=== PATIENT | male | born 1995 | race Caucasian/White ===

== ENCOUNTER 2017-05-15 07:58 | Inpatient (IN) | payer BC, OTHER ==
[~2017-05-15] VITALS: Ht 188 cm; Wt 119.7 kg
[2017-05-15] MEDS ORDERED: HYDROXYZINE PAMOATE 25 MG CAPSULE PO PRN (23:45)
[2017-05-15] MEDS ORDERED: THIAMINE HCL 200 MG/2 ML VIAL IM ONE (23:45)
[2017-05-15] MEDS ORDERED: diphenhydrAMINE 50 MG CAPSULE PO PRN (23:45)
[2017-05-15] MEDS ORDERED: LOPERAMIDE HCL 2 MG CAPSULE PO PRN ×2 (23:45)
[2017-05-15] MEDS ORDERED: DIAZEPAM 10 MG TABLET PO PRN ×2 (23:45)
[2017-05-15] MEDS ORDERED: DICYCLOMINE HCL 20 MG TABLET PO PRN (23:45)
[2017-05-15] MEDS ORDERED: LORAZEPAM 2 MG/1 ML VIAL IM PRN (23:45)
[2017-05-15] MEDS ORDERED: IBUPROFEN 400 MG TABLET PO PRN (23:45)
[2017-05-15] MEDS ORDERED: DIAZEPAM 5 MG TABLET PO PRN (23:45)
[2017-05-16] MEDS ORDERED: BUPRENORPHINE HCL 2 MG TAB.SUBL SL PRN
[2017-05-16 00:09] LABS: ALANINE AMINOTRANSFERASE 62 U/L (16-63); ALKALINE PHOSPHATASE 69 U/L (50-136); AMYLASE 43 U/L (25-115); ASPARTATE AMINOTRANSFERASE 38 U/L (15-37); BILIRUBIN,TOTAL 0.4 mg/dL (0.2-1.0); CARBON DIOXIDE 28 mmol/L (21-32); CHLORIDE 101 mmol/L (98-107); CREATININE 1.2 mg/dL (0.6-1.3); GLUCOSE 105 mg/dL (74-106); LIPASE 83 U/L (73-393); MAGNESIUM 1.8 mg/dL (1.8-2.4); POTASSIUM 3.6 mmol/L (3.5-5.1); TOTAL PROTEIN, SERUM 7.9 g/dL (6.4-8.2); UREA NITROGEN, BLOOD 11 mg/dL (7-18)
[2017-05-16 00:11] LABS: ETHANOL < 3 MG/DL (0-0)
[2017-05-16 00:18] LABS: THYROID STIMULATING HORMONE 3.571 mIU/mL (0.358-3.740)
[2017-05-16 00:19] LABS: BASOPHILS # (AUTO) 0.1 K/uL (0.0-8.0); BASOPHILS % (AUTO) 0.5 % (0.0-2.0); EOSINOPHILS # (AUTO) 0.2 K/uL (0.0-0.7); HEMATOCRIT 48.2 % (40-50); HEMOGLOBIN 16.4 G/DL (14.0-18.0); LYMPHOCYTES # (AUTO) 3.4 K/UL (0.8-4.8); LYMPHOCYTES % (AUTO) 28.9 % (20.5-51.5); MEAN CORPUSCULAR HEMOGLOBIN 30.6 UUG (27.0-31.0); MEAN CORPUSCULAR HGB CONC 34 g/dL (32.0-37.0); MEAN CORPUSCULAR VOLUME 90.3 FL (82.0-92.0); MONOCYTES # (AUTO) 0.7 K/UL (0.1-1.30); MONOCYTES % (AUTO) 6.3 % (0.0-11.0); NEUTROPHILS # (AUTO) 7.5 K/UL (1.8-8.9); NEUTROPHILS % (AUTO) 62.3 % (38.5-71.5); PLATELET COUNT (AUTO) 240 K/UL (150-450); RED BLOOD CELL COUNT(AUTO) 5.34 MIL/UL (4.7-6.1); WHITE BLOOD COUNT (AUTO) 11.9 K/UL (4.0-11.2)
[2017-05-16] MEDS ORDERED: DIAZEPAM 10 MG TABLET PO ONE (00:30)
[2017-05-16 00:34] LABS: *AMPHETAMINE, URINE NEGATIVE (NEGATIVE); *BARBITURATE, URINE NEGATIVE (NEGATIVE); *CANNABINOID, URINE POSITIVE (NEGATIVE); *COCCAINE, URINE NEGATIVE (NEGATIVE); *OPIATE, URINE NEGATIVE (NEGATIVE); *PHENCYCLIDINE SCREEN,URINE NEGATIVE (NEGATIVE)
[2017-05-16] MEDS ORDERED: THIAMINE HCL 200 MG/2 ML VIAL ONE (00:58)
[2017-05-16] MEDS ORDERED: DIAZEPAM 10 MG TABLET ONE (00:59)
[2017-05-16 04:00] VITALS: BP 149/95
[2017-05-16] MEDS ORDERED: DIVA500T7 PO (04:29)
[2017-05-16] MEDS ORDERED: CHLO25CA22 PO (04:30)
[2017-05-16] MEDS ORDERED: ALPR2TAB7 PO (04:31)
[2017-05-16] MEDS ORDERED: BREX2TAB PO (04:31)
[2017-05-16] MEDS ORDERED: QUET100T PO (04:32)
[2017-05-16] MEDS ORDERED: BUPR300T54 PO (04:32)
[2017-05-16] MEDS ORDERED: VILA20TA PO (04:33)
[2017-05-16] MEDS ORDERED: CARB15DR2 OP (04:33)
[2017-05-16] MEDS ORDERED: NICO1PAT20 TD (04:34)
[2017-05-16] MEDS ORDERED: AMOX500T2 PO (04:35)
[2017-05-16] MEDS ORDERED: LISI-607 PO (04:35)
[2017-05-16] MEDS ORDERED: NICO-724 BC (04:36)
[2017-05-16 08:00] VITALS: BP 133/84
[2017-05-16] MEDS ORDERED: TUBERCULIN,PURIF.PROT.DERIV. 5 TU/0.1 ML TEST ID ONE (09:00)
[2017-05-16] MEDS: FOLIC ACID 1 MG TABLET PO SCH (09:47)
[2017-05-16] MEDS: MULTIVITAMINS,THERAPEUTIC TABLET PO SCH (09:47)
[2017-05-16] MEDS: THIAMINE HCL 100 MG TABLET PO SCH (09:47)
[2017-05-16] MEDS: METHOCARBAMOL 750 MG TABLET PO PRN (09:47)
[2017-05-16] MEDS: CLONIDINE HCL 0.1 MG TABLET PO PRN (09:47)
[2017-05-16] MEDS: IBUPROFEN 600 MG TABLET PO PRN (09:47)
[2017-05-16] MEDS: DIAZEPAM 10 MG TABLET PO SCH ×4 (10:55→20:27)
[2017-05-16 12:00] VITALS: BP 132/81
[2017-05-16 16:00] VITALS: BP 143/90
[2017-05-16] MEDS ORDERED: BENZOCAINE/MENTH/CETYLPYRD LOZENGE MM PRN (16:30)
[2017-05-16] MEDS ORDERED: DIAZEPAM 10 MG TABLET PO PRN ×2 (20:00)
[2017-05-16 20:17] VITALS: BP 133/88
[2017-05-16] MEDS: QUETIAPINE FUMARATE 100 MG TABLET PO SCH (20:27)
[2017-05-16] MEDS: ACETAMINOPHEN 325 MG TABLET PO PRN (20:27)
[2017-05-16] MEDS: GABAPENTIN 300 MG CAPSULE PO SCH (20:28)
[2017-05-16] MEDS: REXULTI 2 MG PO SCH (20:35)
[2017-05-17] MEDS: METHOCARBAMOL 750 MG TABLET PO PRN ×2 (00:09→08:43)
[2017-05-17 00:10] VITALS: BP 108/67
[2017-05-17] MEDS: DIAZEPAM 5 MG TABLET PO PRN ×2 (02:28→06:35)
[2017-05-17] MEDS: IBUPROFEN 600 MG TABLET PO PRN ×2 (02:28→08:43)
[2017-05-17 04:14] VITALS: BP 97/56
[2017-05-17 07:08] LABS: HEPATITIS B SURFACE AG Negative (Negative)
[2017-05-17 07:41] LABS: BASOPHILS % (AUTO) 0.5 % (0.0-2.0); EOSINOPHILS # (AUTO) 0.3 K/uL (0.0-0.7); EOSINOPHILS % (AUTO) 3.8 % (0.0-7.0); HEMATOCRIT 46.1 % (40-50); HEMOGLOBIN 15.6 G/DL (14.0-18.0); LYMPHOCYTES # (AUTO) 2.6 K/UL (0.8-4.8); LYMPHOCYTES % (AUTO) 32.4 % (20.5-51.5); MEAN CORPUSCULAR HEMOGLOBIN 30.4 UUG (27.0-31.0); MEAN CORPUSCULAR HGB CONC 34 g/dL (32.0-37.0); MONOCYTES # (AUTO) 0.6 K/UL (0.1-1.30); MONOCYTES % (AUTO) 7.3 % (0.0-11.0); NEUTROPHILS # (AUTO) 4.6 K/UL (1.8-8.9); PLATELET COUNT (AUTO) 229 K/UL (150-450); RED BLOOD CELL COUNT(AUTO) 5.12 MIL/UL (4.7-6.1); WHITE BLOOD COUNT (AUTO) 8.1 K/UL (4.0-11.2)
[2017-05-17 08:00] VITALS: BP 110/66
[2017-05-17] MEDS: GABAPENTIN 300 MG CAPSULE PO SCH ×3 (08:42→20:45)
[2017-05-17] MEDS: DIAZEPAM 10 MG TABLET PO SCH ×3 (08:42→20:45)
[2017-05-17] MEDS: buPROPion XL 150 MG TAB.SR.24H PO SCH (08:42)
[2017-05-17] MEDS: FOLIC ACID 1 MG TABLET PO SCH (08:43)
[2017-05-17] MEDS: MULTIVITAMINS,THERAPEUTIC TABLET PO SCH (08:43)
[2017-05-17] MEDS: CLONIDINE HCL 0.1 MG TABLET PO PRN (08:43)
[2017-05-17] MEDS: THIAMINE HCL 100 MG TABLET PO SCH (08:43)
[2017-05-17] MEDS ORDERED: HOME MED MISCELLANEOUS PO SCH (09:00)
[2017-05-17] MEDS ORDERED: DIAZEPAM 10 MG TABLET PO PRN ×2 (11:15)
[2017-05-17] MEDS ORDERED: DIAZEPAM 5 MG TABLET PO PRN (11:15)
[2017-05-17] MEDS ORDERED: BACLOFEN 20 MG TABLET PO PRN (11:30)
[2017-05-17] MEDS ORDERED: DIAZEPAM 10 MG TABLET PO ONE ×2 (11:54)
[2017-05-17 12:00] VITALS: BP 124/85
[2017-05-17] MEDS: BUPRENORPHINE HCL 2 MG TAB.SUBL SL SCH ×3 (12:03→20:46)
[2017-05-17] MEDS: MAG HYDROX/AL HYDROX/SIMETH 30 ML LIQUID UDC PO PRN (15:59)
[2017-05-17 16:00] VITALS: BP 128/90
[2017-05-17 20:12] VITALS: BP 133/90
[2017-05-17] MEDS: REXULTI 2 MG PO SCH (20:44)
[2017-05-17] MEDS: QUETIAPINE FUMARATE 100 MG TABLET PO SCH (20:45)
[2017-05-17] MEDS: ONDANSETRON ODT 4 MG TAB.RAPDIS SL PRN (22:27)
[2017-05-18 00:06] VITALS: BP 127/85
[2017-05-18] MEDS: ACETAMINOPHEN 325 MG TABLET PO PRN ×2 (03:56→21:20)
[2017-05-18] MEDS: IBUPROFEN 600 MG TABLET PO PRN ×2 (03:56→13:39)
[2017-05-18 04:09] VITALS: BP 127/82
[2017-05-18 08:12] VITALS: BP 138/62
[2017-05-18] MEDS: THIAMINE HCL 100 MG TABLET PO SCH (08:15)
[2017-05-18] MEDS: DIAZEPAM 5 MG TABLET PO SCH ×3 (08:15→21:21)
[2017-05-18] MEDS: MULTIVITAMINS,THERAPEUTIC TABLET PO SCH (08:15)
[2017-05-18] MEDS: FOLIC ACID 1 MG TABLET PO SCH (08:15)
[2017-05-18] MEDS: METHOCARBAMOL 750 MG TABLET PO PRN (08:16)
[2017-05-18] MEDS: buPROPion XL 150 MG TAB.SR.24H PO SCH (08:16)
[2017-05-18] MEDS: GABAPENTIN 300 MG CAPSULE PO SCH ×3 (08:16→21:21)
[2017-05-18] MEDS ORDERED: BUPRENORPHINE HCL 2 MG TAB.SUBL SL SCH (09:00)
[2017-05-18] MEDS ORDERED: DIAZEPAM 5 MG TABLET PO SCH (09:00)
[2017-05-18] MEDS ORDERED: NICOTINE POLACRILEX 2 MG LOZENGE BC PRN (12:15)
[2017-05-18] MEDS ORDERED: NICOTINE 2 MG PO PRN (12:30)
[2017-05-18 13:39] VITALS: BP 124/83
[2017-05-18] MEDS: ONDANSETRON ODT 4 MG TAB.RAPDIS SL PRN (14:07)
[2017-05-18] MEDS: ONDANSETRON 4 MG/2 ML VIAL IM PRN (14:16)
[2017-05-18] MEDS: BUPRENORPHINE HCL 2 MG TAB.SUBL SL SCH ×2 (15:12→21:30)
[2017-05-18 17:35] VITALS: BP 125/76
[2017-05-18 20:00] VITALS: BP 123/76
[2017-05-18] MEDS: AMOXICILLIN-CLAVUL 875-125MG TABLET PO SCH (21:19)
[2017-05-18] MEDS: QUETIAPINE FUMARATE 100 MG TABLET PO SCH (21:20)
[2017-05-19] VITALS: BP 121/57
[2017-05-19] MEDS: METHOCARBAMOL 750 MG TABLET PO PRN (01:35)
[2017-05-19] MEDS: IBUPROFEN 600 MG TABLET PO PRN (01:36)
[2017-05-19 04:00] VITALS: BP 101/65
[2017-05-19 07:23] LABS: CREATININE 1.1 mg/dL (0.6-1.3); PHOSPHOROUS 3.5 mg/dL (2.5-4.9); POTASSIUM 3.7 mmol/L (3.5-5.1)
[2017-05-19 07:27] LABS: BASOPHILS % (AUTO) 0.5 % (0.0-2.0); EOSINOPHILS # (AUTO) 0.1 K/uL (0.0-0.7); EOSINOPHILS % (AUTO) 1.4 % (0.0-7.0); HEMATOCRIT 42.5 % (40-50); HEMOGLOBIN 14.3 G/DL (14.0-18.0); LYMPHOCYTES # (AUTO) 2.4 K/UL (0.8-4.8); LYMPHOCYTES % (AUTO) 25.5 % (20.5-51.5); MEAN CORPUSCULAR HEMOGLOBIN 30.2 UUG (27.0-31.0); MEAN CORPUSCULAR HGB CONC 34 g/dL (32.0-37.0); MONOCYTES # (AUTO) 0.8 K/UL (0.1-1.30); MONOCYTES % (AUTO) 8.8 % (0.0-11.0); NEUTROPHILS % (AUTO) 63.8 % (38.5-71.5); PLATELET COUNT (AUTO) 213 K/UL (150-450); RED BLOOD CELL COUNT(AUTO) 4.72 MIL/UL (4.7-6.1); WHITE BLOOD COUNT (AUTO) 9.3 K/UL (4.0-11.2)
[2017-05-19 08:11] VITALS: BP 110/71
[2017-05-19] MEDS ORDERED: DIAZEPAM 5 MG TABLET PO SCH (09:00)
[2017-05-19] MEDS ORDERED: BUPRENORPHINE HCL 2 MG TAB.SUBL SL SCH (09:00)
[2017-05-19] MEDS: FOLIC ACID 0.4 MG TABLET PO SCH (09:31)
[2017-05-19] MEDS: AMOXICILLIN-CLAVUL 875-125MG TABLET PO SCH ×2 (09:31→21:45)
[2017-05-19] MEDS: GABAPENTIN 300 MG CAPSULE PO SCH (09:32)
[2017-05-19] MEDS: BUPRENORPHINE HCL 2 MG TAB.SUBL SL SCH ×4 (09:32→21:46)
[2017-05-19] MEDS: THIAMINE HCL 100 MG TABLET PO SCH (09:32)
[2017-05-19] MEDS: buPROPion XL 150 MG TAB.SR.24H PO SCH (09:32)
[2017-05-19] MEDS: MULTIVITAMINS,THERAPEUTIC TABLET PO SCH (09:32)
[2017-05-19] MEDS: DIAZEPAM 5 MG TABLET PO SCH ×4 (09:33→21:45)
[2017-05-19] MEDS: PATIENT MAY USE OWN MED- MD OK PO SCH (09:34)
[2017-05-19] MEDS: ACETAMINOPHEN 325 MG TABLET PO PRN (11:01)
[2017-05-19] MEDS ORDERED: SUMATRIPTAN SUCCINATE 50 MG TABLET PO ONE (11:45)
[2017-05-19] MEDS ORDERED: KETOROLAC TROMETHAMINE 30 MG INJ IM PRN (11:45)
[2017-05-19] MEDS ORDERED: MAGNESIUM CITRATE 296 ML BOTTLE PO ONE (11:45)
[2017-05-19] MEDS: DOCUSATE SODIUM 250 MG CAPSULE PO SCH (12:32)
[2017-05-19 12:40] VITALS: BP 114/75
[2017-05-19] MEDS: ONDANSETRON 4 MG/2 ML VIAL IM PRN ×2 (14:02→21:04)
[2017-05-19] MEDS: BACLOFEN 10 MG TABLET PO SCH ×2 (15:34→21:46)
[2017-05-19] MEDS: ASPIRIN/ACETAMINOPHEN/CAFFEINE TABLET PO PRN ×2 (15:34→21:58)
[2017-05-19] MEDS: GABAPENTIN 400 MG CAPSULE PO SCH ×2 (15:34→21:44)
[2017-05-19 16:59] VITALS: BP 136/81
[2017-05-19 20:00] VITALS: BP 143/97
[2017-05-19] MEDS: QUETIAPINE FUMARATE 100 MG TABLET PO SCH (21:45)
[2017-05-19] MEDS: LACTOBACILLUS RHAMNOSUS GG 1 EACH CAPSULE PO SCH (21:46)
[2017-05-19] MEDS: MAGNESIUM HYDROXIDE 30 ML LIQUID UDC PO PRN (21:59)
[2017-05-20 08:00] VITALS: BP 90/50
[2017-05-20] MEDS ORDERED: DIAZEPAM 5 MG TABLET PO SCH (09:00)
[2017-05-20] MEDS ORDERED: BUPRENORPHINE HCL 2 MG TAB.SUBL SL SCH ×3 (09:00→21:00)
[2017-05-20 09:05] VITALS: BP 132/86
[2017-05-20] MEDS: MAG HYDROX/AL HYDROX/SIMETH 30 ML LIQUID UDC PO PRN ×2 (09:09→18:47)
[2017-05-20] MEDS: ONDANSETRON ODT 4 MG TAB.RAPDIS SL PRN (09:09)
[2017-05-20] MEDS: GABAPENTIN 400 MG CAPSULE PO SCH ×3 (09:51→20:57)
[2017-05-20] MEDS: DOCUSATE SODIUM 250 MG CAPSULE PO SCH (09:51)
[2017-05-20] MEDS: BACLOFEN 10 MG TABLET PO SCH ×3 (09:51→20:58)
[2017-05-20] MEDS: LACTOBACILLUS RHAMNOSUS GG 1 EACH CAPSULE PO SCH ×2 (09:52→20:57)
[2017-05-20] MEDS: DIAZEPAM 5 MG TABLET PO SCH ×3 (09:52→20:58)
[2017-05-20] MEDS: MULTIVITAMINS,THERAPEUTIC TABLET PO SCH (09:52)
[2017-05-20] MEDS: FOLIC ACID 0.4 MG TABLET PO SCH (09:52)
[2017-05-20] MEDS: PATIENT MAY USE OWN MED- MD OK PO SCH (09:52)
[2017-05-20] MEDS: THIAMINE HCL 100 MG TABLET PO SCH (09:52)
[2017-05-20] MEDS: AMOXICILLIN-CLAVUL 875-125MG TABLET PO SCH ×2 (09:52→20:57)
[2017-05-20] MEDS: buPROPion XL 150 MG TAB.SR.24H PO SCH (10:49)
[2017-05-20 12:00] VITALS: BP 133/83
[2017-05-20] MEDS ORDERED: SUMATRIPTAN SUCCINATE 50 MG TABLET PO PRN (14:00)
[2017-05-20 16:00] VITALS: BP 129/89
[2017-05-20] MEDS: MIRALAX 17 GM POWD.PACK PO PRN (16:29)
[2017-05-20 20:00] VITALS: BP 139/86
[2017-05-20] MEDS ORDERED: BISACODYL 10 MG SUPP.RECT RC PRN (20:45)
[2017-05-20] MEDS ORDERED: BISACODYL 5 MG TABLET.DR PO PRN (20:45)
[2017-05-20] MEDS ORDERED: FLEET ENEMA 133 ML BOTTLE RC PRN (20:45)
[2017-05-20] MEDS: QUETIAPINE FUMARATE 100 MG TABLET PO SCH (20:58)
[2017-05-20] MEDS: MAGNESIUM HYDROXIDE 30 ML LIQUID UDC PO PRN (21:13)
[2017-05-20] MEDS: ONDANSETRON 4 MG/2 ML VIAL IM PRN (23:21)
[2017-05-21 08:02] VITALS: BP 108/77
[2017-05-21] MEDS: AMOXICILLIN-CLAVUL 875-125MG TABLET PO SCH ×2 (08:57→20:05)
[2017-05-21] MEDS: buPROPion XL 150 MG TAB.SR.24H PO SCH (08:58)
[2017-05-21] MEDS: LACTOBACILLUS RHAMNOSUS GG 1 EACH CAPSULE PO SCH ×2 (08:58→20:04)
[2017-05-21] MEDS: GABAPENTIN 400 MG CAPSULE PO SCH ×3 (08:58→20:04)
[2017-05-21] MEDS: THIAMINE HCL 100 MG TABLET PO SCH (08:58)
[2017-05-21] MEDS: DOCUSATE SODIUM 250 MG CAPSULE PO SCH (08:58)
[2017-05-21] MEDS: MULTIVITAMINS,THERAPEUTIC TABLET PO SCH (08:59)
[2017-05-21] MEDS: BACLOFEN 10 MG TABLET PO SCH ×3 (08:59→20:04)
[2017-05-21] MEDS: FOLIC ACID 0.4 MG TABLET PO SCH (08:59)
[2017-05-21] MEDS: DIAZEPAM 5 MG TABLET PO SCH ×2 (08:59→20:04)
[2017-05-21] MEDS ORDERED: BUPRENORPHINE HCL 2 MG TAB.SUBL SL SCH ×2 (09:00)
[2017-05-21] MEDS ORDERED: DIAZEPAM 5 MG TABLET PO SCH (09:00)
[2017-05-21] MEDS ORDERED: DIAZEPAM 5 MG TABLET PO PRN (09:00)
[2017-05-21] MEDS: PATIENT MAY USE OWN MED- MD OK PO SCH (09:13)
[2017-05-21 12:30] VITALS: BP 127/90
[2017-05-21] MEDS: ONDANSETRON ODT 4 MG TAB.RAPDIS SL PRN (13:34)
[2017-05-21] MEDS: IBUPROFEN 600 MG TABLET PO PRN (14:01)
[2017-05-21 16:30] VITALS: BP 125/80
[2017-05-21 20:00] VITALS: BP 133/85
[2017-05-21] MEDS: QUETIAPINE FUMARATE 100 MG TABLET PO SCH (20:05)
[2017-05-21] MEDS: MIRALAX 17 GM POWD.PACK PO PRN (21:37)
[2017-05-21] MEDS: MAGNESIUM HYDROXIDE 30 ML LIQUID UDC PO PRN (23:55)
[2017-05-22] VITALS: BP 123/88
[2017-05-22 08:00] VITALS: BP 124/87
[2017-05-22] MEDS: REXULTI 1 MG PO SCH (10:17)
[2017-05-22] MEDS: GABAPENTIN 400 MG CAPSULE PO SCH ×3 (10:17→20:01)
[2017-05-22] MEDS: LACTOBACILLUS RHAMNOSUS GG 1 EACH CAPSULE PO SCH ×2 (10:17→20:01)
[2017-05-22] MEDS: AMOXICILLIN-CLAVUL 875-125MG TABLET PO SCH ×2 (10:17→20:05)
[2017-05-22] MEDS: THIAMINE HCL 100 MG TABLET PO SCH (10:17)
[2017-05-22] MEDS: BACLOFEN 10 MG TABLET PO SCH ×3 (10:17→20:02)
[2017-05-22] MEDS: DOCUSATE SODIUM 250 MG CAPSULE PO SCH (10:17)
[2017-05-22] MEDS: FOLIC ACID 0.4 MG TABLET PO SCH (10:17)
[2017-05-22] MEDS: MULTIVITAMINS,THERAPEUTIC TABLET PO SCH (10:17)
[2017-05-22] MEDS: buPROPion XL 150 MG TAB.SR.24H PO SCH (10:28)
[2017-05-22 12:00] VITALS: BP 134/86
[2017-05-22 14:18] LABS: *AMPHETAMINE, URINE NEGATIVE (NEGATIVE); *BARBITURATE, URINE NEGATIVE (NEGATIVE); *CANNABINOID, URINE NEGATIVE (NEGATIVE); *COCCAINE, URINE NEGATIVE (NEGATIVE); *OPIATE, URINE NEGATIVE (NEGATIVE); *PHENCYCLIDINE SCREEN,URINE NEGATIVE (NEGATIVE)
[2017-05-22 16:00] VITALS: BP 108/54
[2017-05-22] MEDS ORDERED: ONDA4TAB11 SL (16:26)
[2017-05-22] MEDS ORDERED: Amoxicillin-Clavul 875MG Tab PO (16:26)
[2017-05-22] MEDS ORDERED: GABA-536 PO (16:26)
[2017-05-22] MEDS ORDERED: LACT1CAP57 PO (16:26)
[2017-05-22 20:00] VITALS: BP 119/80
[2017-05-22] MEDS: IBUPROFEN 600 MG TABLET PO PRN (20:01)
[2017-05-22] MEDS: QUETIAPINE FUMARATE 100 MG TABLET PO SCH (20:03)
[2017-05-23] VITALS: BP_SYST 106; BP_SYST 123; BP_DIAS 68; BP_DIAS 77
[2017-05-23 08:09] VITALS: BP 127/86
[2017-05-23] MEDS: DOCUSATE SODIUM 250 MG CAPSULE PO SCH (09:07)
[2017-05-23] MEDS: FOLIC ACID 0.4 MG TABLET PO SCH (09:07)
[2017-05-23] MEDS: buPROPion XL 150 MG TAB.SR.24H PO SCH (09:07)
[2017-05-23] MEDS: LACTOBACILLUS RHAMNOSUS GG 1 EACH CAPSULE PO SCH (09:07)
[2017-05-23] MEDS: BACLOFEN 10 MG TABLET PO SCH (09:08)
[2017-05-23] MEDS: MULTIVITAMINS,THERAPEUTIC TABLET PO SCH (09:08)
[2017-05-23] MEDS: GABAPENTIN 400 MG CAPSULE PO SCH (09:08)
[2017-05-23] MEDS: THIAMINE HCL 100 MG TABLET PO SCH (09:08)
[2017-05-23] MEDS: AMOXICILLIN-CLAVUL 875-125MG TABLET PO SCH (09:11)
[2017-05-23] MEDS: REXULTI 1 MG PO SCH (09:11)
== END 2017-05-23 09:32 | disposition other institution (70) | DRG 895 ==
LOC: SRC 22:15
PROVIDERS: ADMIT Internal Medicine; ATTEND Internal Medicine
PROC: HZ2ZZZZ Detoxification Services for Substance Abuse Treatment (ICD-10-PCS; principal; 2017-05-15)
PROC: HZ41ZZZ Group Counseling for Substance Abuse Treatment, Behavioral (ICD-10-PCS; 2017-05-16)
PROC: HZ31ZZZ Individual Counseling for Substance Abuse Treatment, Behavioral (ICD-10-PCS; 2017-05-17)
DX: F10.230 Alcohol dependence with withdrawal, uncomplicated (principal); F31.5 Bipolar disorder, current episode depressed, severe, with psychotic features; I10 Essential (primary) hypertension; F13.230 Sedative, hypnotic or anxiolytic dependence with withdrawal, uncomplicated; Y90.9 Presence of alcohol in blood, level not specified; E66.9 Obesity, unspecified; Z68.33 Body mass index [BMI] 33.0-33.9, adult; J02.0 Streptococcal pharyngitis; B95.4 Other streptococcus as the cause of diseases classified elsewhere; F17.210 Nicotine dependence, cigarettes, uncomplicated; G43.909 Migraine, unspecified, not intractable, without status migrainosus; F41.1 Generalized anxiety disorder; Z81.8 Family history of other mental and behavioral disorders; F12.90 Cannabis use, unspecified, uncomplicated; K59.03 Drug induced constipation; R33.9 Retention of urine, unspecified; Z79.899 Other long term (current) drug therapy
CPT/HCPCS: 36415; 70030-TC; 80307; 80346; 80349; 83690; 83735; 84100; 84443; 85025; 86403; 86580; 86592; 86705; 86803; 87070; 87340; 87806; 93005; G0480; J1885; J2405; J3411; Q0162